=== PATIENT | female | born 1955 | race Caucasian/White ===

== ENCOUNTER 2022-11-27 13:08 | Outpatient (CLI) | payer MEDICARE | END 2022-11-27 23:59 | disposition home or self-care (01) | LOC: RAD 13:08 | PROVIDERS: ATTEND Neuromusculoskeletal Medicine & OMM | DX: I67.82 Cerebral ischemia (principal); R90.82 White matter disease, unspecified; I69.90 Unspecified sequelae of unspecified cerebrovascular disease | CPT/HCPCS: 70544; 70547; 70551 ==

== ENCOUNTER 2023-05-12 07:28 | Emergency (ER) | payer MEDICARE, MEDICAID ==
[~2023-05-12] VITALS: Ht 170.2 cm; Wt 84.3 kg
[2023-05-12 10:01] LABS: BASOPHILS % (AUTO) 0.5 % (0-1); EOSINOPHILS # (AUTO) 0.1 X10'3 (0-0.9); EOSINOPHILS % (AUTO) 1.9 % (0-6); HEMATOCRIT 36.4 % (35.0-45.0); HEMOGLOBIN 12.2 g/dl (12.0-16.0); LYMPHOCYTES # (AUTO) 1.4 X10'3 (1.1-4.8); LYMPHOCYTES % (AUTO) 17.4 % (21-51); MEAN CORPUSCULAR HEMOGLOBIN 29.4 PG (27.0-31.0); MEAN CORPUSCULAR HGB CONC 33.6 g/dL (33.0-36.5); MEAN CORPUSCULAR VOLUME 87.4 FL (78-98); MONOCYTES # (AUTO) 0.6 X10'3 (0-0.9); MONOCYTES % (AUTO) 8.3 % (2-12); NEUTROPHILS # (AUTO) 5.6 X10'3 (1.8-7.7); NEUTROPHILS % (AUTO) 71.9 % (42-75); PLATELET COUNT 256 X10'3 (140-440); RED BLOOD COUNT 4.16 X10'6 (4.20-5.60); RED CELL DISTRIBUTION WIDTH 13.3 % (11.5-14.5); WHITE BLOOD COUNT 7.8 X10'3 (4.5-11.0)
[2023-05-12 10:10] LABS: ALANINE AMINOTRANSFERASE 15 U/L (12-78); ALBUMIN 3.5 G/DL (3.4-5.0); ALKALINE PHOSPHATASE 110 IU/L (46-116); ANION GAP 6 (8-16); ASPARTATE AMINO TRANSFERASE 14 U/L (10-37); BILIRUBIN,TOTAL 0.6 MG/DL (0.1-1.0); BLOOD UREA NITROGEN 13 MG/DL (7-18); BUN/CREATININE RATIO 18.8 (10.0-20.0); CALCIUM 8.5 MG/DL (8.5-10.1); CHLORIDE 106 MMOL/L (99-107); CREATININE 0.69 MG/DL (0.40-0.90); GLUCOSE 161 MG/DL (70-104); POTASSIUM 3.5 MMOL/L (3.5-5.1); SODIUM 138 MMOL/L (135-145); TOTAL CARBON DIOXIDE 25.7 MMOL/L (24-32); TOTAL PROTEIN 7.1 G/DL (6.4-8.2); eCRCL 74 ML/MIN; eGFR 84 ML/MIN
[2023-05-12 11:17] LABS: D-DIMER 1.08 MG/L FEU (0-0.50)
[2023-05-12] MEDS ORDERED: LORazepam 2 mg/ml vial IV ONE (12:30)
[2023-05-12] MEDS ORDERED: acetaminophen 325mg tablet PO ONE (12:40)
[2023-05-12 13:51] LABS: APTT 24 SECONDS (22-32)
[2023-05-12 13:58] LABS: INR 0.9 INR
[2023-05-12] MEDS ORDERED: iohexol 300mg/ml 100ml inj. ONE (16:01)
[2023-05-12] MEDS ORDERED: iohexol 350MG/ML 100ml bottle IV ONE (16:02)
[2023-05-12] MEDS ORDERED: iohexol 350 MG/ML 50ML vial IV ONE (16:40)
[2023-05-12 19:57] VITALS: BP 155/89; PULSE 80; RESP 14; TEMP 97.7; O2SAT 97
== END 2023-05-12 20:00 | disposition home or self-care (01) ==
LOC: ER 07:28
DX: M71.21 Synovial cyst of popliteal space [Baker], right knee (principal); Z88.0 Allergy status to penicillin
CPT/HCPCS: 36415; 80053; 85025; 85379; 85610; 85730; 93971; 99285; J3490; Q9967

== ENCOUNTER 2023-06-12 10:08 | Outpatient (CLI) | payer MEDICARE, MEDICAID ==
[2023-06-12] MEDS ORDERED: GADOTERATE MEGLUMINE 7.5 MMOL/15 ML VIAL IV ONE (12:50)
== END 2023-06-12 23:59 | disposition home or self-care (01) ==
LOC: RAD 10:08
PROVIDERS: ATTEND Physician Assistant
DX: S80.01XA Contusion of right knee, initial encounter (principal); M79.89 Other specified soft tissue disorders; X58.XXXA Exposure to other specified factors, initial encounter; Y93.89 Activity, other specified; Y92.89 Other specified places as the place of occurrence of the external cause; Y99.8 Other external cause status
CPT/HCPCS: 73720; A9575